=== PATIENT | male | born 1980 | race Caucasian/White ===

== ENCOUNTER 2019-08-03 09:49 | Inpatient (IN) | payer OTHER ==
--- NOTE | 2019-08-03 10:15 | XR ---
EXAMINATION TYPE: XR chest 1V portable DATE OF EXAM: 08/03/2019 COMPARISON: NONE HISTORY: Trauma with chest pain. TECHNIQUE: Single frontal view of the chest is obtained. FINDINGS: There is patient rotation slightly exaggerating mediastinal borders. There is no focal air space opacity, pleural effusion, or pneumothorax seen. The cardiac silhouette size is within normal limits. The osseous structures are intact. IMPRESSION: No acute process.
[2019-08-03 10:16] LABS: Glucose,Whole Blood 117 mg/dL (75-99)
[2019-08-03 10:32] LABS: Basophils % (A) 0 %; Eosinophils # (A) 0.2 k/uL (0-0.7); Eosinophils % (A) 2 %; HCT 42.7 % (39.0-53.0); HGB 15.2 gm/dL (13.0-17.5); Lymphocytes # (A) 2.3 k/uL (1.0-4.8); Lymphocytes % (A) 32 %; MCH 32.6 pg (25.0-35.0); MCHC 35.6 g/dL (31.0-37.0); MCV 91.7 fL (80.0-100.0); Mean Platelet Volume 6.2; Monocytes # (A) 0.3 k/uL (0-1.0); Monocytes % (A) 4 %; Neutrophils # (A) 4.3 k/uL (1.3-7.7); Neutrophils % (A) 59 %; Platelet Count 255 k/uL (150-450); RBC 4.66 m/uL (4.30-5.90); RDW 12.6 % (11.5-15.5); WBC 7.2 k/uL (3.8-10.6)
[2019-08-03] MEDS ORDERED: HYDROmorphone 1 MG/ML 1 ML SYRINGE IVP STA (10:34)
--- NOTE | 2019-08-03 10:35 | CT ---
EXAMINATION TYPE: CT brain susanine wo con DATE OF EXAM: 08/03/2019 COMPARISON: Brain 09/02/2010 HISTORY: 39-year-old male Trauma. Head injury. CT DLP: 1812 mGycm Automated exposure control for dose reduction was used. Technique: Examination of the head was done in axial plane without intravenous contrast. Coronal and sagittal reconstructions performed. CT of the cervical spine was obtained in axial plane without intravenous injection of contrast mater ial. Coronal and sagittal reformatted images were obtained from the axial views for evaluation of f ractures, spinal alignment and canal. FINDINGS: Head: There is no evidence of acute intracranial hemorrhage, acute ischemic changes, mass, mass-effect, or extra-axial fluid collection. There is no effacement of cerebral sulci or basal subarachnoid cister ns. There is no hydrocephalus. There is no midline shift. Epps-white matter distinction is preserv ed. Moderate to severe mucosal thickening right axillary sinus and a 2.4 cm polyp or mucosal retention cy st left maxillary sinus. Moderate mucosal thickening ethmoid air cells. Mastoid air cells are well pn eumatized. Orbits and globes are intact. Rightward nasal septal deviation. Focal atherosclerotic calcification distal basilar artery. Extensive scalp injury along the right superior and lateral convexity. Air tracking along the calvari al surface. With deep scalp lacerations. No underlying calvarial fracture. Cervical spine: No craniocervical junction abnormality or predental space widening. There is some redundant preverteb ral soft tissues and bilateral palatine tonsillar hypertrophy. Moderate discussion. Degenerative heredia ge C5-C6. Assessment of the spinal canal from C4-C5 and below is limited due to artifact from the pat ient's shoulders. No acute fracture is identified. Alignment is maintained. Vertebral mild left-sided neuroforaminal st enoses from facet and uncovertebral joint arthropathy. Sagittal and coronal reformatted images confirm above findings. COMBINED IMPRESSION: 1. Extensive scalp injury along the right superior and lateral convexity. No underlying calvarial fra cture or acute intracranial abnormality seen. 2. No acute fracture or malalignment of the cervical spine. Thickening of the prevertebral soft tissu es felt to be secondary to soft tissue redundancy. No tracking edema seen. 3. Severe chronic right maxillary sinus disease. Moderate chronic ethmoid sinusitis.
[2019-08-03 10:36] LABS: ALT 59 U/L (21-72); AST 48 U/L (17-59); African American GFR (CKD) >90 (>60 ml/min/1.73 sqM); Albumin 4.5 g/dL (3.5-5.0); Alkaline Phosphatase 85 U/L (38-126); Amylase 36 U/L (30-110); Anion Gap 12 mmol/L; Blood Urea Nitrogen 19 mg/dL (9-20); Calcium 9.1 mg/dL (8.4-10.2); Carbon Dioxide 20 mmol/L (22-30); Chloride 109 mmol/L (98-107); Glucose 116 mg/dL (74-99); Sodium 141 mmol/L (137-145); Total Bilirubin 0.7 mg/dL (0.2-1.3); Total Protein 7.4 g/dL (6.3-8.2)
[2019-08-03 10:41] LABS: Creatine Kinase 352 U/L (55-170)
[2019-08-03 10:43] LABS: INR 0.9 (<1.2); Partial Thromboplastin Time 22.4 sec (22.0-30.0); Prothrombin Time 10.2 sec (9.0-12.0)
[2019-08-03 10:53] LABS: Creatine Kinase MB 3.8 ng/mL (0.0-2.4); Troponin I <0.012 ng/mL (0.000-0.034)
[2019-08-03] MEDS ORDERED: DIPH,PERTUS(ACELL)TETVAC-LF 0.5 ML VIAL IM ONE (11:14)
--- NOTE | 2019-08-03 11:23 | ED ---
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 He was about 6 feet up on a ladder and didn't fall because of the left upper extremity. He did not lose any consciousness he has no complaints of any loss of function to his upper or lower extremities. She did complain some neck pain. No blurry vision no other modifying factors. He is not sure when his last tetanus shot was. He did come in by EMS priority 2. He was a priority 2 upon arrival and the trauma system was activated. Dr. Connolly a callback. Complaint: injury - Related Data Home Medications Medication Instructions Recorded Confirmed Ibuprofen [Motrin Ib] 400 - 600 mg PO TID PRN 08/03/19 08/03/19 Allergies Allergy/AdvReac Type Severity Reaction Status Date / Time No Known Allergies Allergy Verified 08/03/19 10:39 Review of Systems ROS Statement: Those systems with pertinent positive or pertinent negative responses have been documented in the HPI. ROS Other: All systems not noted in ROS Statement are negative. Past Medical History Past Medical History: No Reported History, GERD/Reflux History of Any Multi-Drug Resistant Organisms: None Reported Past Surgical History: No Surgical Hx Reported Past Psychological History: No Psychological Hx Reported Smoking Status: Never smoker Past Alcohol Use History: Occasional Past Drug Use History: None Reported General Exam - General Exam Comments Initial Comments: This a well-developed well-nourished awake alert oriented 3 male who demonstrates a [place] Coma Scale of 15 General appearance: alert, anxious Head exam: Present: normocephalic, other (There is an approximate 17 cm laceration from the frontal scalp to the occipital scalp with active bleeding noted. No definite step-off crepitation form body seen.) Eye exam: Present: normal appearance, PERRL, EOMI. Absent: scleral icterus, conjunctival injection, periorbital swelling ENT exam: Present: normal exam, mucous membranes moist Neck exam: Present: normal inspection, other (Paraspinous tenderness palpation no definite spinous process tenderness. No stridor JVD or bruits). Absent: tenderness, meningismus, lymphadenopathy Respiratory exam: Present: normal lung sounds bilaterally. Absent: respiratory distress, wheezes, rales, rhonchi, stridor Cardiovascular Exam: Present: regular rate, normal rhythm, normal heart sounds. Absent: systolic murmur, diastolic murmur, rubs, gallop, clicks GI/Abdominal exam: Present: soft, normal bowel sounds. Absent: distended, tenderness, guarding, rebound, rigid Extremities exam: Present: full ROM, normal capillary refill, other (Area of ecchymosis seen over the proximal lateral right arm/shoulder region no open wounds requiring repair). Absent: tenderness, pedal edema, joint swelling, calf tenderness Back exam: Present: normal inspection Neurological exam: Present: alert, oriented X3, CN II-XII intact Psychiatric exam: Present: normal affect, normal mood Skin exam: Present: warm, dry, intact, normal color. Absent: rash Course Vital Signs 08/03/19 09:53 Temperature 98.6 F Pulse Rate 91 Respiratory 20 Rate Blood Pressure 144/109 O2 Sat by Pulse 97 Oximetry - Reevaluation(s) Reevaluation #1: 08/03/19 11:24 Reevaluation patient after return from CAT scan revealed no change in mental status he remains a [place] Coma Scale of 15 awake and alert. Mobility of his extremities. Medical Decision Making - Medical Decision Making I did reevaluate patient several occasions and did discuss the findings with him. Due to the extent of the scalp laceration as well as the multiple bleeding sites was felt it would be more adequate to repair the scalp laceration the operating room. Dr. Cathleen white come the emergency department see the patient and will take the patient up her room for repair the scalp laceration. - Lab Data Result diagrams: 08/03/19 10:03 08/03/19 10:03 Lab Results 08/03/19 08/03/19 08/03/19 Range/Units 09:57 10:00 10:03 WBC 7.2 (3.8-10.6) k/uL RBC 4.66 (4.30-5.90) m/uL Hgb 15.2 (13.0-17.5) gm/dL Hct 42.7 (39.0-53.0) % MCV 91.7 (80.0-100.0) fL MCH 32.6 (25.0-35.0) pg MCHC 35.6 (31.0-37.0) g/dL RDW 12.6 (11.5-15.5) % Plt Count 255 (150-450) k/uL Neutrophils % 59 % Lymphocytes % 32 % Monocytes % 4 % Eosinophils % 2 % Basophils % 0 % Neutrophils # 4.3 (1.3-7.7) k/uL Lymphocytes # 2.3 (1.0-4.8) k/uL Monocytes # 0.3 (0-1.0) k/uL Eosinophils # 0.2 (0-0.7) k/uL Basophils # 0.0 (0-0.2) k/uL PT (9.0-12.0) sec INR (<1.2) APTT (22.0-30.0) sec Sodium (137-145) mmol/L Potassium (3.5-5.1) mmol/L Chloride (98-107) mmol/L Carbon Dioxide (22-30) mmol/L Anion Gap mmol/L BUN (9-20) mg/dL Creatinine (0.66-1.25) mg/dL Est GFR (CKD-EPI)AfAm (>60 ml/min/1.73 sqM) Est GFR (CKD-EPI)NonAf (>60 ml/min/1.73 sqM) Glucose (74-99) mg/dL POC Glucose (mg/dL) 117 H (75-99) mg/dL POC Glu [employer]er ID Ramonita Chaparro Plasma Lactic Acid Néstor (0.7-2.0) mmol/L Calcium (8.4-10.2) mg/dL Total Bilirubin (0.2-1.3) mg/dL AST (17-59) U/L ALT (21-72) U/L Alkaline Phosphatase (38-126) U/L Total Creatine Kinase (55-170) U/L CK-MB (CK-2) (0.0-2.4) ng/mL CK-MB (CK-2) Rel Index Troponin I (0.000-0.034) ng/mL Total Protein (6.3-8.2) g/dL Albumin (3.5-5.0) g/dL Amylase (30-110) U/L Lipase (23-300) U/L Blood Type A Positive Blood Type Confirm Blood Type Recheck No Previous Record Bld Type Recheck Status CABO Indicated Antibody Screen NEGATIVE Spec Expiration Date 08/06/2019229908/03/19 08/03/19 08/03/19 Range/Units 10:03 10:03 10:03 WBC (3.8-10.6) k/uL RBC (4.30-5.90) m/uL Hgb (13.0-17.5) gm/dL Hct (39.0-53.0) % MCV (80.0-100.0) fL MCH (25.0-35.0) pg MCHC (31.0-37.0) g/dL RDW (11.5-15.5) % Plt Count (150-450) k/uL Neutrophils % % Lymphocytes % % Monocytes % % Eosinophils % % Basophils % % Neutrophils # (1.3-7.7) k/uL Lymphocytes # (1.0-4.8) k/uL Monocytes # (0-1.0) k/uL Eosinophils # (0-0.7) k/uL Basophils # (0-0.2) k/uL PT 10.2 (9.0-12.0) sec INR 0.9 (<1.2) APTT 22.4 (22.0-30.0) sec Sodium 141 (137-145) mmol/L Potassium 4.0 (3.5-5.1) mmol/L Chloride 109 H (98-107) mmol/L Carbon Dioxide 20 L (22-30) mmol/L Anion Gap 12 mmol/L BUN 19 (9-20) mg/dL Creatinine 0.94 (0.66-1.25) mg/dL Est GFR (CKD-EPI)AfAm >90 (>60 ml/min/1.73 sqM) Est GFR (CKD-EPI)NonAf >90 (>60 ml/min/1.73 sqM) Glucose 116 H (74-99) mg/dL POC Glucose (mg/dL) (75-99) mg/dL POC Glu [employer]er ID Plasma Lactic Acid Néstor (0.7-2.0) mmol/L Calcium 9.1 (8.4-10.2) mg/dL Total Bilirubin 0.7 (0.2-1.3) mg/dL AST 48 (17-59) U/L ALT 59 (21-72) U/L Alkaline Phosphatase 85 (38-126) U/L Total Creatine Kinase 352 H (55-170) U/L CK-MB (CK-2) 3.8 H (0.0-2.4) ng/mL CK-MB (CK-2) Rel Index 1.1 Troponin I <0.012 (0.000-0.034) ng/mL Total Protein 7.4 (6.3-8.2) g/dL Albumin 4.5 (3.5-5.0) g/dL Amylase 36 (30-110) U/L Lipase 95 (23-300) U/L Blood Type Blood Type Confirm Blood Type Recheck Bld Type Recheck Status Antibody Screen Spec Expiration Date 08/03/19 08/03/19 Range/Units 10:03 10:54 WBC (3.8-10.6) k/uL RBC (4.30-5.90) m/uL Hgb (13.0-17.5) gm/dL Hct (39.0-53.0) % MCV (80.0-100.0) fL MCH (25.0-35.0) pg MCHC (31.0-37.0) g/dL RDW (11.5-15.5) % Plt Count (150-450) k/uL Neutrophils % % Lymphocytes % % Monocytes % % Eosinophils % % Basophils % % Neutrophils # (1.3-7.7) k/uL Lymphocytes # (1.0-4.8) k/uL Monocytes # (0-1.0) k/uL Eosinophils # (0-0.7) k/uL Basophils # (0-0.2) k/uL PT (9.0-12.0) sec INR (<1.2) APTT (22.0-30.0) sec Sodium (137-145) mmol/L Potassium (3.5-5.1) mmol/L Chloride (98-107) mmol/L Carbon Dioxide (22-30) mmol/L Anion Gap mmol/L BUN (9-20) mg/dL Creatinine (0.66-1.25) mg/dL Est GFR (CKD-EPI)AfAm (>60 ml/min/1.73 sqM) Est GFR (CKD-EPI)NonAf (>60 ml/min/1.73 sqM) Glucose (74-99) mg/dL POC Glucose (mg/dL) (75-99) mg/dL POC Glu [employer] Grower ID Plasma Lactic Acid Néstor 1.6 (0.7-2.0) mmol/L Calcium (8.4-10.2) mg/dL Total Bilirubin (0.2-1.3) mg/dL AST (17-59) U/L ALT (21-72) U/L Alkaline Phosphatase (38-126) U/L Total Creatine Kinase (55-170) U/L CK-MB (CK-2) (0.0-2.4) ng/mL CK-MB (CK-2) Rel Index Troponin I (0.000-0.034) ng/mL Total Protein (6.3-8.2) g/dL Albumin (3.5-5.0) g/dL Amylase (30-110) U/L Lipase (23-300) U/L Blood Type Blood Type Confirm A Positive Blood Type Recheck Bld Type Recheck Status Antibody Screen Spec Expiration Date - EKG Data -: EKG Interpreted by Dc EKG shows normal: sinus rhythm (Sinus rhythm a 94. Interval 138 QRS duration 92 QT/QTC 348/435 this is a normal-appearing EKG) - Radiology Data Radiology results: report reviewed (I did review the imaging and report no evidence of acute bony or soft tissue injury other than the aforementioned laceration of the scalp.), image reviewed Critical Care Time Critical Care Time: Yes Critical Care Time: 39 minutes of critical care time which includes initial presentation with his tory physical labs x-rays discussed with paramedics history and the findings of reevaluation the patient. Discussion the patient family members discuss with Dr. Connolly and documentation of the above Disposition Clinical Impression: Scalp laceration, Multiple contusions, Fall, Scalp contusion Disposition: ADMITTED IP TO THIS [facility] Condition: Fair Referrals: None,Stated [Primary Care Provider] - 1-2 days
--- NOTE | 2019-08-03 11:28 | P.GSHP ---
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 Patient reports falling. He tried to protect protect his head by raising his right hand. He does report some forearm pain. Family is at bedside. Denies any loss of consciousness. He was brought in by EMS with massive bleeding from the scalp. At this time his scalp wound is controlled with a pressure dressing. No reports of double vision. No reports of loss of memory. As a result of his injury, he's been admitted for closure of a complex open sca lp laceration. PAST MEDICAL HISTORY: See list PAST SURGICAL HISTORY: See list MEDICATIONS See list ALLERGIES: See list SOCIAL HISTORY: See list FAMILY HISTORY: See list REVIEW OF ORGAN SYSTEMS: CONSTITUTIONAL: Denies any fever or chills. HEENT: Denies any trouble with vision, hearing or nosebleeds. No difficulty swallowing. LYMPHATIC: The patient denies any lumps and bumps around the neck. ENDOCRINE: Denies any thyroid disorders. Denies any blood sugar glucose intolerance. RESPIRATORY: Denies pneumonia. No past history of pulmonary embolism. CARDIOVASCULAR: No chest pain. GASTROINTESTINAL: No bright red blood per rectum. GENITOURINARY: Denies any blood in urine or increased urinary frequency. MUSCULOSKELETAL: Has back pain, stiffness, joint arthritis. NEUROLOGIC: Denies any numbness or tingling along the distal extremities. No seizure disorders or headaches. PSYCHIATRIC: Denies depression or suidical ideation. HEMATOLOGIC: Denies any abnormal bleeding or bruising. BREASTS: Denies any breast lumps, pain or nipple discharge. PHYSICAL EXAM: VITAL SIGNS: Stable GENERAL: Well-developed male in no acute distress. HEENT: No sclerae icterus. Extraocular movements grossly intact. Moist buccal mucosa. Pressure dressing along the occiput and frontal including parietal aspect of the scalp with open scalp laceration with visibility of the skull. NECK: Cervical spine midline. Neck is nontender. CHEST: No crepitus or obvious swelling over the chest. CARDIOVASCULAR: Distal pulses 2+. Regular rate ABDOMEN: Soft, nontender, nondistended. No rigidity. No peritonitis. MUSCULOSKELETAL: No clubbing, cyanosis, or edema. NEURO: No focal or lateralizing signs. Cranial nerves II to XII intact. SKIN: Perfused. Good skin turgor. Primary and secondary survey completed. LABS: Reviewed STUDIES: CT of the head reviewed demonstrating large complex scalp laceration with hematoma. No intracranial injury identified. ASSESSMENT: 1. Level II trauma activation, status post fall including steel beam to the head 2. Open complex scalp laceration with hemorrhage PLAN: 1. Recommend proceeding with surgical debridement including control of bleeding and closure of complex scalp wound 2. DVT prophylaxis 3. Pulmonary prophylaxis 4. Antibiotic prophylaxis Past Medical History Past Medical History: No Reported History, GERD/Reflux History of Any Multi-Drug Resistant Organisms: None Reported Past Surgical History: No Surgical Hx Reported Past Psychological History: No Psychological Hx Reported Smoking Status: Never smoker Past Alcohol Use History: Occasional Past Drug Use History: None Reported Medications and Allergies Home Medications Medication Instructions Recorded Confirmed Type Ibuprofen [Motrin Ib] 400 - 600 mg PO TID PRN 08/03/19 08/03/19 History Allergies Allergy/AdvReac Type Severity Reaction Status Date / Time No Known Allergies Allergy Verified 08/03/19 10:39 Surgical - Exam Vital Signs Temp Pulse Resp BP Pulse Ox 98.6 F 91 20 144/109 97 08/03/19 09:53 08/03/19 09:53 08/03/19 09:53 08/03/19 09:53 08/03/19 09:53 Results - Labs 08/03/19 10:03 08/03/19 10:03 Abnormal Lab Results - Last 24 Hours (Table) 08/03/19 08/03/19 08/03/19 Range/Units 09:57 10:03 10:03 Chloride 109 H (98-107) mmol/L Carbon Dioxide 20 L (22-30) mmol/L Glucose 116 H (74-99) mg/dL POC Glucose (mg/dL) 117 H (75-99) mg/dL Total Creatine Kinase 352 H (55-170) U/L CK-MB (CK-2) 3.8 H (0.0-2.4) ng/mL Diabetes panel 08/03/19 Range/Units 10:03 Sodium 141 (137-145) mmol/L Potassium 4.0 (3.5-5.1) mmol/L Chloride 109 H (98-107) mmol/L Carbon Dioxide 20 L (22-30) mmol/L BUN 19 (9-20) mg/dL Creatinine 0.94 (0.66-1.25) mg/dL Glucose 116 H (74-99) mg/dL Calcium 9.1 (8.4-10.2) mg/dL AST 48 (17-59) U/L ALT 59 (21-72) U/L Alkaline Phosphatase 85 (38-126) U/L Total Protein 7.4 (6.3-8.2) g/dL Albumin 4.5 (3.5-5.0) g/dL Calcium panel 08/03/19 Range/Units 10:03 Calcium 9.1 (8.4-10.2) mg/dL Albumin 4.5 (3.5-5.0) g/dL Pituitary panel 08/03/19 Range/Units 10:03 Sodium 141 (137-145) mmol/L Potassium 4.0 (3.5-5.1) mmol/L Chloride 109 H (98-107) mmol/L Carbon Dioxide 20 L (22-30) mmol/L BUN 19 (9-20) mg/dL Creatinine 0.94 (0.66-1.25) mg/dL Glucose 116 H (74-99) mg/dL Calcium 9.1 (8.4-10.2) mg/dL Adrenal panel 08/03/19 Range/Units 10:03 Sodium 141 (137-145) mmol/L Potassium 4.0 (3.5-5.1) mmol/L Chloride 109 H (98-107) mmol/L Carbon Dioxide 20 L (22-30) mmol/L BUN 19 (9-20) mg/dL Creatinine 0.94 (0.66-1.25) mg/dL Glucose 116 H (74-99) mg/dL Calcium 9.1 (8.4-10.2) mg/dL Total Bilirubin 0.7 (0.2-1.3) mg/dL AST 48 (17-59) U/L ALT 59 (21-72) U/L Alkaline Phosphatase 85 (38-126) U/L Total Protein 7.4 (6.3-8.2) g/dL Albumin 4.5 (3.5-5.0) g/dL
[2019-08-03] MEDS ORDERED: LIDOCAINE 1% INJ 10MG/ML (20 ML MDV) ONE (11:57)
[2019-08-03] MEDS ORDERED: MIDAZOLAM 2 MG/2 ML VIAL ONE (11:57)
[2019-08-03] MEDS ORDERED: SUCCINYLCHOLINE CHLORIDE VIAL 200 MG/10 ML VIAL IV ONE (11:57)
[2019-08-03] MEDS ORDERED: LACTATED RINGERS 1,000 ML IV ONE (11:57)
[2019-08-03] MEDS ORDERED: PROPOFOL 10 MG/ML 20 ML VIAL IV ONE (11:57)
[2019-08-03] MEDS ORDERED: fentaNYL (PF) 50 MCG/ML 2 ML AMP ONE (11:57)
[2019-08-03 12:05] VITALS: BMI 33.6
[2019-08-03] MEDS ORDERED: LIDOCAINE 1%-EPI 1:100,000 20 ML VIAL SQ ONE (12:22)
[2019-08-03] MEDS ORDERED: BACITRACIN OINT 1 EACH PACKET TOPICAL ONE (13:06)
[2019-08-03] MEDS ORDERED: ACETAMINOPHEN IV (For NPO) 1,000 MG in EMPTY BAG 1 BAG IVPB ONE ×2 (13:12→16:27)
[2019-08-03] MEDS ORDERED: NALOXONE 0.4 MG/ML 1 ML VIAL IV PRN (13:12)
[2019-08-03] MEDS ORDERED: METOCLOPRAMIDE 5 MG/ML 2 ML VIAL IVP PRN (13:12)
[2019-08-03] MEDS ORDERED: ONDANSETRON 4 MG/2 ML VIAL IVP PRN (13:12)
--- NOTE | 2019-08-03 13:27 | P.OP ---
Date of Procedure: 08/03/19 Description of Procedure: SURGEON: REFUGIO HERNADEZ MD TAR PROCESSING TECHNICIAN: None. PREOPERATIVE DIAGNOSES: 1. Complex parietal/occiputal scalp laceration status post hit by 500 pound metal beam. 2. Status post fall over 6 feet 3. Uncontrolled hemorrhage scalp laceration 4. Acute blood loss anemia from scalp laceration POSTOPERATIVE DIAGNOSES: 1. Complex parietal/occiputal scalp laceration status post hit by 500 pound metal beam. 2. Status post fall over 6 feet 3. Uncontrolled hemorrhage scalp laceration 4. Acute blood loss anemia from scalp laceration 5. Complex parietal/occiputal scalp laceration to fascia, 16 cm PROCEDURES PERFORMED: 1. Complex closure parietal/occipital scalp laceration to fascia 16 cm 2. Control of hemorrhage scalp laceration Anesthesia: GETA, local Estimated Blood Loss (ml): 200 Pathology: None Condition: stable Disposition: same day COMPLICATIONS: None. INDICATIONS: The patient is a 39-year-old male who presents following trauma to the head after being hit by 500 pound metal beam with complex laceration and acute blood loss anemia from scalp laceration. Benefits and risks of surgical intervention were described including bleeding, infection. Informed consent was obtained. Case was also deemed emergency secondary to hemorrhage from scalp. DESCRIPTION OR PROCEDURE: Patient was brought into the operating room from the emergency room. After general induction, initial dressings were taken down with application of pressure to the site during prep and drape. Timeout protocol was confirmed with the surgical team regarding the patient's name, procedure to be performed including preoperative medications. DVT prophylaxis was confirmed with pneumatic compression devices. A field block was placed of the scalp. Wound was explored with complete full thickness laceration through the fascia and the aponeuroses of the right parietal area. The laceration extended from the right forehead to the right occiput and parietal area. Bleeding along the scalp tissues were controlled using electro-Bovie cautery. Moderate loss of aponeuroses was confirmed. The wound was copiously irrigated using pulse lavage 500 mL to 1000 mL normal saline. Additional hemostasis was controlled using electro-Bovie cautery. Initial skin vikki placed to reapproximate the laceration. 3 all Vicryl was placed interrupted along the forehead laceration. Next running suture of 4-0 Prolene was placed along the forehead laceration to the hairline. From the occiput anteriorly, 3-0 Prolene in a running fashion was also placed. Final length of the repair laceration was 16 cm. Complete exposure of aponeuroses and scalp tissue was 16 x 10 cm defect completely closed. The skin was cleansed with hydrogen peroxide followed by bacitracin ointment along the closure. At the end of the procedure, needle, sponge, and instrument count was verified correct by rn medical surgical. The patient tolerated the procedure well. Operative Findings: 1. Complex wide soft tissue defect 16 x 10 cm involving the right forehead, right parietal and occipital area to the aponeuroses and fascia. 2. Complex closure of 16 cm full-thickness scalp laceration
[2019-08-03] MEDS ORDERED: HYDROmorphone 0.5 MG/0.5 ML SYRINGE IVP ONE (13:44)
[2019-08-03] MEDS: HYDROcodone/APAP 5-325MG 1 EACH TAB PO PRN ×2 (15:39→20:00)
[2019-08-03] MEDS: BACITRACIN 500 UNIT/GM OINT 28.4 GM TUBE TOPICAL SCH (21:28)
[2019-08-03] MEDS: DOCUSATE 100 MG CAP PO SCH (21:28)
[2019-08-03 23:49] LABS: Appearance,Urine Clear (Clear); Bilirubin,Urine Negative (Negative); Blood,Urine Negative (Negative); Color,Urine Yellow; Glucose,Urine (UA) Negative (Negative); Ketones,Urine Negative (Negative); Leukocyte Esterase,Urine Negative (Negative); Nitrite,Urine Negative (Negative); Protein,Urine Negative (Negative); Specific Gravity,Urine 1.021 (1.001-1.035); Urobilinogen,Urine <2.0 mg/dL (<2.0)
[2019-08-04] MEDS: HYDROcodone/APAP 5-325MG 1 EACH TAB PO PRN ×2 (03:04→07:29)
[2019-08-04 07:53] LABS: ALT 41 U/L (21-72); AST 27 U/L (17-59); African American GFR (CKD) >90 (>60 ml/min/1.73 sqM); Albumin 3.5 g/dL (3.5-5.0); Alkaline Phosphatase 58 U/L (38-126); Anion Gap 8 mmol/L; Blood Urea Nitrogen 14 mg/dL (9-20); Calcium 8.4 mg/dL (8.4-10.2); Carbon Dioxide 25 mmol/L (22-30); Chloride 106 mmol/L (98-107); Glucose 111 mg/dL (74-99); Potassium 4.1 mmol/L (3.5-5.1); Sodium 139 mmol/L (137-145); Total Bilirubin 0.7 mg/dL (0.2-1.3)
[2019-08-04] MEDS: DOCUSATE 100 MG CAP PO SCH ×2 (08:41→20:58)
[2019-08-04] MEDS: BACITRACIN 500 UNIT/GM OINT 28.4 GM TUBE TOPICAL SCH ×2 (08:41→22:28)
[2019-08-04] MEDS ORDERED: ACETAMINOPHEN TAB 325 MG TAB PO PRN (08:43)
--- NOTE | 2019-08-04 08:52 | P.PN ---
Subjective Progress Note Date: 08/04/19 Reported headache as expected along the right scalp from area of injury. Minimal dizziness with walking. He reports right arm, shoulder, forearm pain. No hand or wrist pain. SKIN: Incision clean and intact along forehead. No active bleeding. PLAN: 1. Baby shampoo with combing of hair with assistance 2. Adjust pain to ibuprofen, tylenol oral 3. Xrays of the right arm 4. CBC pending for acute blood loss anemia. Objective - Vital Signs Vital signs: Vital Signs Temp 98.2 F 08/03/19 23:46 Pulse 88 08/04/19 07:31 Resp 15 08/04/19 07:31 BP 111/72 08/03/19 23:46 Pulse Ox 95 08/03/19 23:46 Intake & Output 08/03/19 08/04/19 08/04/19 18:59 06:59 18:59 Intake Total 500 Output Total 200 925 Balance 300 -925 Weight 112.491 kg Intake: IV 500 Output: Urine 925 Estimated Blood Loss 200 Other: Voiding Method Toilet Toilet Urinal Urinal # Voids 1 1 - Labs CBC & Chem 7: 08/03/19 10:03 08/04/19 06:53 Labs: Abnormal Lab Results - Last 24 Hours (Table) 08/03/19 08/03/19 08/03/19 Range/Units 09:57 10:03 10:03 Chloride 109 H (98-107) mmol/L Carbon Dioxide 20 L (22-30) mmol/L Glucose 116 H (74-99) mg/dL POC Glucose (mg/dL) 117 H (75-99) mg/dL Total Creatine Kinase 352 H (55-170) U/L CK-MB (CK-2) 3.8 H (0.0-2.4) ng/mL Total Protein (6.3-8.2) g/dL 08/04/19 Range/Units 06:53 Chloride (98-107) mmol/L Carbon Dioxide (22-30) mmol/L Glucose 111 H (74-99) mg/dL POC Glucose (mg/dL) (75-99) mg/dL Total Creatine Kinase (55-170) U/L CK-MB (CK-2) (0.0-2.4) ng/mL Total Protein 6.0 L (6.3-8.2) g/dL
--- NOTE | 2019-08-04 09:31 | XR ---
EXAMINATION TYPE: XR forearm RT , 2 VIEWS DATE OF EXAM ORDERED: 08/04/2019 HISTORY: trauma. COMPARISON: None. FINDINGS: No fracture, dislocation or other long bone lesion is seen. IMPRESSION: NO ACUTE OSSEOUS LESION.
[2019-08-04] MEDS: IBUPROFEN 600 MG TAB PO SCH ×3 (09:34→20:57)
--- NOTE | 2019-08-04 09:34 | XR ---
EXAMINATION TYPE: XR shoulder complete RT , 3 VIEWS DATE OF EXAM ORDERED: 08/04/2019 HISTORY: trauma. COMPARISON: None. FINDINGS: There are hypertrophic changes present in the right AC joint. No fracture or dislocation i s seen. IMPRESSION: 1. NO ACUTE OSSEOUS LESION. 2. MILD DEGENERATIVE CHANGE.
--- NOTE | 2019-08-04 09:37 | XR ---
EXAMINATION TYPE: XR humerus RT , 4 VIEWS DATE OF EXAM ORDERED: 08/04/2019 HISTORY: trauma. COMPARISON: None. FINDINGS: Once again, hypertrophic changes are noted in the right AC joint. No long bone fracture or dislocation is seen. IMPRESSION: 1. NO ACUTE OSSEOUS LESION. 2. HYPERTROPHIC CHANGE, RIGHT AC JOINT.
[2019-08-04 10:09] LABS: Basophils # (A) 0.1 k/uL (0-0.2); Basophils % (A) 1 %; Eosinophils # (A) 0.1 k/uL (0-0.7); Eosinophils % (A) 2 %; HGB 12.4 gm/dL (13.0-17.5); Lymphocytes % (A) 30 %; MCH 32.4 pg (25.0-35.0); MCHC 34.6 g/dL (31.0-37.0); MCV 93.8 fL (80.0-100.0); Mean Platelet Volume 7.5; Monocytes # (A) 0.5 k/uL (0-1.0); Monocytes % (A) 7 %; Neutrophils # (A) 3.9 k/uL (1.3-7.7); Neutrophils % (A) 59 %; Platelet Count 220 k/uL (150-450); RBC 3.84 m/uL (4.30-5.90); RDW 12.6 % (11.5-15.5); WBC 6.7 k/uL (3.8-10.6)
[2019-08-05] MEDS: HYDROcodone/APAP 5-325MG 1 EACH TAB PO PRN (06:12)
[2019-08-05 07:28] LABS: HCT 35.8 % (39.0-53.0); HGB 12.2 gm/dL (13.0-17.5); MCH 31.8 pg (25.0-35.0); MCHC 34.1 g/dL (31.0-37.0); MCV 93.3 fL (80.0-100.0); Mean Platelet Volume 6.8; Platelet Count 210 k/uL (150-450); RBC 3.84 m/uL (4.30-5.90); RDW 12.5 % (11.5-15.5); WBC 5.9 k/uL (3.8-10.6)
[2019-08-05 08:52] VITALS: BP 111/68; PULSE 77; RESP 16; TEMP 98.1
[2019-08-05] MEDS: IBUPROFEN 600 MG TAB PO SCH (09:15)
[2019-08-05] MEDS: BACITRACIN 500 UNIT/GM OINT 28.4 GM TUBE TOPICAL SCH (09:16)
[2019-08-05] MEDS: DOCUSATE 100 MG CAP PO SCH (09:16)
--- NOTE | 2019-08-05 11:26 | P.PN ---
Subjective Progress Note Date: 08/05/19 Patient 39-year-old gentleman status post complex scalp laceration with scalping secondary to trauma to the head 08/03/2019. His postoperative day 2. His anemia is stable. He does report as expected soreness of the bilateral upper extremities as he had a fall over 6 feet onto his shoulders. X-rays has been negative for fractures. He does reports deep muscular 8. No reports of headaches at this time. HEAD: Incision clean dry and intact. No erythema or cellulitis. ASSESSMENT: 1. Status post complicated scalp laceration PLAN: 1. Patient clinically stable for discharge. Objective - Vital Signs Vital signs: Vital Signs Temp 98.1 F 08/05/19 07:00 Pulse 77 08/05/19 07:00 Resp 16 08/05/19 07:00 BP 111/68 08/05/19 07:00 Pulse Ox 94 L 08/05/19 07:00 Intake & Output 08/04/19 08/05/19 08/05/19 18:59 06:59 18:59 Intake Total 580 Balance 580 Intake: Oral 580 Other: Voiding Method Toilet Toilet Urinal Urinal # Voids 3 2 - Labs CBC & Chem 7: 08/05/19 06:43 08/04/19 06:53 Labs: Abnormal Lab Results - Last 24 Hours (Table) 08/05/19 Range/Units 06:43 RBC 3.84 L (4.30-5.90) m/uL Hgb 12.2 L (13.0-17.5) gm/dL Hct 35.8 L (39.0-53.0) %
--- NOTE | 2019-08-05 11:32 | P.DS ---
Providers Date of admission: 08/03/19 11:18 Expected date of discharge: 08/05/19 Attending physician: Rosa Maria Quiles Primary care physician: Stated None Hospital Course: Patient admitted secondary to complex scalp laceration and trauma status post fall. He had acute blood loss anemia was monitored as a result. Prior to discharge, headache is resolved. His anemia was stable. Discharge instructions were reviewed. Patient Condition at Discharge: Fair Plan - Discharge Summary Discharge Rx Participant: No New Discharge Prescriptions: New Ibuprofen [Motrin] 600 mg PO Q8HR PRN #30 tab PRN Reason: Pain Acetaminophen Tab [Tylenol Tab] 500 mg PO Q6H PRN #30 tablet PRN Reason: Pain Bacitracin Oint 1 applic TOPICAL BID applic HYDROcodone/APAP 5-325MG [[place] 5-325] 1 tab PO Q6HR PRN 3 Days #10 tab PRN Reason: Pain Discontinued Ibuprofen [Motrin Ib] 400 - 600 mg PO TID PRN PRN Reason: Pain Discharge Medication List Acetaminophen Tab [Tylenol Tab] 500 mg PO Q6H PRN #30 tablet 08/05/19 [Rx] Bacitracin Oint 1 applic TOPICAL BID applic 08/05/19 [Rx] HYDROcodone/APAP 5-325MG [[place] 5-325] 1 tab PO Q6HR PRN 3 Days #10 tab 08/05/19 [Rx] Ibuprofen [Motrin] 600 mg PO Q8HR PRN #30 tab 08/05/19 [Rx] Follow up Appointment(s)/Referral(s): None,Stated [Primary Care Provider] - 1-2 days Rosa Maria Quiles MD [STAFF PHYSICIAN] - 08/07/19 Patient Instructions/Handouts: Care For Your Stitches (DC), Laceration (DC) Activity/Diet/Wound Care/Special Instructions: May wash hair with baby shampoo daily. May drive in 24 hours after discharge. Apply bacitracin ointment to wound twice daily. Use antibacterial soap for incision. Discharge Disposition: HOME SELF-CARE
== END 2019-08-05 13:51 | disposition home or self-care (01) | DRG 580 ==
LOC: EC 09:49 → 4SSUR 11:18
PROVIDERS: ADMIT Surgery Plastic and Reconstructive Surgery; ATTEND Surgery Plastic and Reconstructive Surgery
PROC: 0JQ00ZZ Repair Scalp Subcutaneous Tissue and Fascia, Open Approach (ICD-10-PCS; principal; 2019-08-03 09:45)
DX: S01.01XA Laceration without foreign body of scalp, initial encounter (principal); D62 Acute posthemorrhagic anemia; W20.8XXA Other cause of strike by thrown, projected or falling object, initial encounter; R40.2412 Glasgow coma scale score 13-15, at arrival to emergency department
CPT/HCPCS: 36415; 70450; 71045; 72125; 80053; 81003; 82150; 82550; 82553; 83605; 83690; 84484; 85025; 85027; 85610; 85730; 86850; 86900; 86901; 90471; 90715; 96365; 96366; 96375; 99291

== ENCOUNTER → 2021-12-28 | Outpatient (CLI) | payer BC ==
--- NOTE | 2021-12-28 12:18 | XR ---
EXAMINATION TYPE: XR foot complete 3 views LT DATE OF EXAM: 12/28/2021 Comparison: None Clinical History: 41-year-old male M109 GOUT BIG TOE Findings: There is a mild soft tissue swelling overlying the medial aspect of the first MTP joint. No juxta-art icular erosions or soft tissue calcification seen. No acute fracture, subluxation, or dislocation. Co uple tiny os peroneum. Impression: Mild soft tissue swelling along the medial aspect of the first MTP joint. No soft tissue calcificatio ns or other acute osseous abnormality seen.
== END | disposition home or self-care (01) ==
LOC: RADXRYALE 10:36
PROVIDERS: ATTEND Internal Medicine
DX: M79.89 Other specified soft tissue disorders (principal)

== ENCOUNTER 2022-09-12 11:50 | Emergency (ER) | payer BC ==
[2022-09-12 12:00] VITALS: BP 140/101; PULSE 102; RESP 18; TEMP 98.3
[2022-09-12] MEDS ORDERED: MORPHINE SULFATE 4 MG/ML SYRINGE IM STA (12:23)
--- NOTE | 2022-09-12 12:28 | ED ---
General Adult HPI - General Chief complaint: Extremity Problem,Nontraumatic Stated complaint: R leg pain Time Seen by Provider: 09/12/22 12:02 Source: patient Mode of arrival: wheelchair Limitations: no limitations - History of Present Illness Initial comments: Dictation was produced using [employer] dictation software. please excuse any grammatical, word or spelling errors. Chief Complaint: 42-year-old male presents emergency Department with 2-3 days of knee pain History of Present Illness: Patient is a 42-year-old male he presents emergency Department with acute onset knee pain. Patient has had knee problems for several years intermittently. He has never had his knee imaged or evaluated by medical professional. Patient works at a [employer]. The night before he had woken up with the pain he pulled a couple balls. Following day he noticed some pain. He is on his feet the day after. Since yesterday his pain has been significant. He states that he walks with a limp. Pain is worse with weightbearing at the knee joint. He is been trying ice his knee. Patient denies any trauma to the knee. Denies any fever or constitutional symptoms. Patient denies any significant comorbidities. The ROS documented in this emergency department record has been reviewed and confirmed by me. Those systems with pertinent positive or negative responses have been documented in the HPI. All other systems are other negative and/or noncontributory. PHYSICAL EXAM: General Impression: Alert and oriented x3, not in acute distress HEENT: Normocephalic atraumatic, extra-ocular movements intact, pupils equal and reactive to light bilaterally, mucous membranes moist. Cardiovascular: Heart regular rate and rhythm Chest: Able to complete full sentences, no retractions, no tachypnea Musculoskeletal: Pulses present and equal in all extremities, no peripheral edema Left knee: Mild suprapatellar effusion and appreciable swelling laterally at the joint space, non-erythematous, not warm to touch. Pain is reproduced with flexion and extension of the knee joint. Motor: no focal deficits noted Neurological: CN II-XII grossly intact, no focal motor or sensory deficits noted Skin: Intact with no visualized rashes Psych: Normal affect and mood ED course: 42-year-old male presents emergency Department with acute onset knee pain. Vital signs upon arrival are within acceptable limits. Nursing notes and chart review was performed X-rays unremarkable. Patient treated with IM analgesics and oral analgesics. Unlikely that patient is suffering from septic arthritis however he is warned of the symptoms of septic joint and come back or seek immediate medical attention. Patient has had gout before and takes allopurinol. Suspicious that patient's knee pain may be secondary to gouty arthritis. Patient given indomethacin. Patient be discharged advised follow-up with primary care doctor. Return precautions discussed. - Related Data Previous Rx's Medication Instructions Recorded Acetaminophen Tab [Tylenol Tab] 500 mg PO Q6H PRN #30 tablet 08/05/19 Bacitracin Zinc Oint 1 applic TOPICAL BID applic 08/05/19 HYDROcodone/APAP 5-325MG [[place] 1 tab PO Q6HR PRN 3 Days #10 tab 08/05/19 5-325] Ibuprofen [Motrin] 600 mg PO Q8HR PRN #30 tab 08/05/19 Indomethacin [Indocin] 50 mg PO TID 3 Days #24 cap 09/12/22 Allergies Allergy/AdvReac Type Severity Reaction Status Date / Time No Known Allergies Allergy Verified 09/12/22 12:00 Review of Systems ROS Statement: Those systems with pertinent positive or pertinent negative responses have been documented in the HPI. ROS Other: All systems not noted in ROS Statement are negative. Past Medical History Past Medical History: GERD/Reflux Additional Past Medical History / Comment(s): chronic L knee pain, occasional back pain, bronchitis. History of Any Multi-Drug Resistant Organisms: None Reported Past Surgical History: Adenoidectomy Additional Past Surgical History / Comment(s): Adenoids removed twice. Past Anesthesia/Blood Transfusion Reactions: Postoperative Nausea & Vomiting (PONV) Past Psychological History: No Psychological Hx Reported Smoking Status: Former smoker Past Alcohol Use History: Daily Past Drug Use History: None Reported - Past Family History Father Family Medical History: Hyperlipidemia, Hypertension Mother Family Medical History: Hyperlipidemia General Exam Limitations: no limitations Course Vital Signs 09/12/22 11:57 Temperature 98.3 F Pulse Rate 102 H Respiratory 18 Rate Blood Pressure 140/101 O2 Sat by Pulse 96 Oximetry Disposition Clinical Impression: Knee pain Disposition: HOME SELF-CARE Condition: Good Instructions (If sedation given, give patient instructions): Gout (ED), Knee Pain (ED) Prescriptions: Indomethacin [Indocin] 50 mg PO TID 3 Days #24 cap Is patient prescribed a controlled substance at d/c from ED?: No Referrals: Aldo,Savanna, MD [Primary Care Provider] - 1-2 days Time of Disposition: 14:14
--- NOTE | 2022-09-12 13:10 | XR ---
EXAMINATION TYPE: XR knee 4V LT DATE OF EXAM: 09/12/2022 12:41 PM INDICATION: Patient age:Male; 42 years old; Reason for study: knee pain; PHH. COMPARISON: None. TECHNIQUE: The Left knee(s) was examined in Frontal, lateral and oblique projections. FINDINGS: No evidence of any acute osseous pathology, joint space narrowing, soft tissue swelling. Small joint effusion is present. IMPRESSION: 1. No acute osseous pathology. 2. Small joint effusion.
[2022-09-12] MEDS ORDERED: INDOMETHACIN 25 MG CAP PO STA (14:10)
[2022-09-12] MEDS ORDERED: ACET/COD 300 MG/30 MG STARTER PACK 6 TAB BTL PO STA (14:11)
== END 2022-09-12 14:29 | disposition home or self-care (01) ==
LOC: EC 11:50
DX: M25.561 Pain in right knee (principal); M25.461 Effusion, right knee; Z87.891 Personal history of nicotine dependence
CPT/HCPCS: 99284; 96372; 73564; J2270